=== PATIENT | female | born 1975 | race Caucasian/White ===

== ENCOUNTER 2020-07-13 23:54 | Emergency (ER) | payer OTHER ==
[~2020-07-13] VITALS: Ht 170.2 cm; Wt 77.1 kg
[2020-07-14 00:03] VITALS: BP 121/77
[2020-07-14] MEDS ORDERED: CYCLOPENTOLA1 %/2 M1 OPHTHALMIC (01:19)
[2020-07-14] MEDS ORDERED: ERYTHROMYCIN E3.5 G2 OPHTHALMIC (01:19)
[2020-07-14] MEDS ORDERED: NORCO5 PO (01:19)
== END 2020-07-14 01:30 | disposition home or self-care (01) ==
LOC: ER 23:54
DX: H18.823 Corneal disorder due to contact lens, bilateral (principal); Z90.49 Acquired absence of other specified parts of digestive tract